=== PATIENT | male | born 1935 | race Hispanic/Latino ===

== ENCOUNTER 2016-11-26 06:06 | Day surgery (SDC) | payer MEDICARE ==
[2016-11-26 06:39] VITALS: BMI 23.0
[2016-11-26] MEDS ORDERED: Lidocaine 1% Inj (20ml) ONE (07:33)
[2016-11-26] MEDS ORDERED: Bupivacaine 0.5% Inj(30mL) ONE (07:33)
[2016-11-26] MEDS ORDERED: Midazolam 2 MG/2 ML VIAL ONE (07:46)
[2016-11-26] MEDS ORDERED: Propofol 10 mg/ml Inj (20 ML) ONE (07:46)
[2016-11-26] MEDS ORDERED: Lactated Ringer's 1,000 ML IV SCH (08:45)
--- NOTE | 2016-11-26 12:46 | OP ---
PROCEDURE DATE: 11/26/2016 PREOPERATIVE DIAGNOSES: Carpal tunnel syndrome, left nondominant hand and trigger finger, fifth digit, left hand. POSTOPERATIVE DIAGNOSES: Carpal tunnel syndrome, left nondominant hand and trigger finger, fifth digit, left hand. PROCEDURE: Open carpal tunnel release with Naranjito tome and open trigger finger release of A1 yulia of the 5th digit left hand. ANESTHESIA: IV sedation and local anesthesia with Xylocaine and Marcaine. DESCRIPTION OF PROCEDURE: The left hand prepped and draped in sterile fashion. Tourniquet inflated to 220 mmHg pressure. Anatomic markings made of the left hand to do a limited carpal tunnel incision by making an incision between the 2 pillars between the hypothenar and thenar eminences and in line with the cardinal's osmany and the radial side of the 4th diget. Deep incision made through the fat pad. After the skin was incised, then we identified the transverse carpal ligament and used the 0.3 blades to help the Betty tome to go under the transverse carpal ligament to protect the median nerve and then a second jig to go more proximal and a third one to go into the flexor beyond the flexor crease of the forearm to a cm. Then the carpal tunnel was released with the Naranjito tome protected vertical blade and we lifted up the tissue and to see that it was fully released. Then, we did the repair of the skin with 2-0 nylon interrupted and then the trigger finger was released with a Chevron incision, apex ulnar side, then that was opened with 1 cm long identifying the A1 yulia, which was released with a 15 blade and to make sure it was fully released and then closed the skin again with 2-0 nylon interrupted. The patient taken to recovery room after the tourniquet was deflated with a nice compression dressing. I will see him in the office in 2 days. Brody Velazquez DO cc: [id number] TT: 11/26/2016 12:45:33 yifan GOSS
[2016-11-27 15:49] VITALS: O2SAT 95
[2016-11-27 15:51] VITALS: RESP 18; TEMP 98
[2016-11-27 15:53] VITALS: BP 128/72; PULSE 54
== END 2016-11-26 11:10 | disposition home or self-care (01) ==
LOC: SDS 06:06
PROVIDERS: ATTEND Orthopaedic Surgery
DX: G56.02 Carpal tunnel syndrome, left upper limb (principal); M65.352 Trigger finger, left little finger
CPT/HCPCS: 26055; 64721; J0690; J2250; J2704; J3010; J7120 ×2

== ENCOUNTER 2017-02-08 15:52 | Emergency (ER) | payer MEDICARE ==
[2017-02-08 15:56] VITALS: BMI 23.1
[2017-02-08 16:06] VITALS: RESP 18; TEMP 97.6
--- NOTE | 2017-02-08 16:08 | ED PDOC ---
Arrival/HPI - General Chief Complaint: Syncope Time Seen by Provider: 02/08/17 15:57 Historian: Patient - History of Present Illness Narrative History of Present Illness (Text): 02/08/17 16:06 81yo male with PMHx of CAD with cardiac stents, hypertension and Diabetes biba for syncopal episode. Patient states he "passed out" while waiting for the food he ordered to be delivered. He notes that he ate breakfast this morning. He states he took his hypoglycemics this morning. He denies any current any current symptom in ED. Denies chest pain, visual changes, focal weakness, nausea , vomiting, recent URI symptoms, fever, chills, abdominal pain, aphasia, headache, sick contact, any other complaint. Past Medical History - Provider Review Nursing Documentation Reviewed: Yes - Infectious Disease Hx of Infectious Diseases: None - Tetanus Immunization Tetanus Immunization: Unknown - Past Medical History Past Medical History: No Previous - Cardiac Hx PR: Yes Hx Hypertension: Yes Hx Pacemaker: No - Pulmonary Hx Respiratory Disorders: No - Neurological Hx Paralysis: No - HEENT Hx HEENT Disorder: No - Renal Hx Renal Disorder: No - Endocrine/Metabolic Hx Endocrine Disorders: Yes Hx Diabetes Mellitus Type 1: Yes - Hematological/Oncological Hx Blood Transfusions: No Hx Blood Transfusion Reaction: No - Integumentary Hx Dermatological Disorder: No - Musculoskeletal/Rheumatological Hx Musculoskeletal Disorders: No - Gastrointestinal Hx Gastrointestinal Disorders: Yes Hx Gastroesophageal Reflux: Yes - Genitourinary/Gynecological Hx Genitourinary Disorders: Yes Hx Prostate Problems: Yes - Psychiatric Hx Emotional Abuse: No Hx Physical Abuse: No Hx Substance Use: No - Past Surgical History Past Surgical History: No Previous - Surgical History Hx Cardiac Catheterization: Yes (with 1 stent) Hx Vascular Surgery: Yes (stents to legs) Other/Comment: "bladder surgery" - Anesthesia Hx Anesthesia Reactions: No Hx Malignant Hyperthermia: No - Suicidal Assessment Feels Threatened In Home Enviroment: No Family/Social History - Physician Review Nursing Documentation Reviewed: Yes Family/Social History: Unknown Family HX Smoking Status: Former Smoker Hx Alcohol Use: No Hx Substance Use: No Hx Substance Use Treatment: No Allergies/Home Meds Allergies/Adverse Reactions: Allergies No Known Allergies Allergy (Verified 02/08/17 15:57) Home Medications: Home Meds Medication Instructions Recorded Confirmed Esomeprazole Magnesium [Nexium] 40 mg PO DAILY 02/15/13 02/08/17 Metformin HCl [Metformin] 850 mg PO BID 02/15/13 02/08/17 Clopidogrel [Plavix] 1 tab PO DAILY 11/27/14 02/08/17 Simvastatin [Simvastatin] 40 mg PO DAILY 11/27/14 02/08/17 diltiaZEM [Cardizem] 30 mg PO DAILY 11/27/14 02/08/17 Enalapril Maleate [Vasotec] 20 mg PO DAILY 09/25/15 02/08/17 Glipizide [Glipizide Xl] 10 mg PO DAILY 09/25/15 02/08/17 Isosorbide Mononitrate [Isosorbide 30 mg PO DAILY 09/25/15 02/08/17 Mononitrate ER] Pentoxifylline [Pentoxil] 400 mg PO DAILY 09/25/15 02/08/17 Aspirin [Ecotrin] 81 mg PO DAILY 11/15/16 02/08/17 Levothyroxine [Synthroid] 25 mcg PO DAILY 11/15/16 02/08/17 Review of Systems - Physician Review All systems were reviewed & negative as marked: Yes - Review of Systems Constitutional: Normal Eyes: Normal ENT: Normal Respiratory: Normal Cardiovascular: Normal Gastrointestinal: Normal Genitourinary Male: Normal Musculoskeletal: Normal Skin: Normal Neurological: Other (Syncopal episode) Endocrine: Normal Hemo/Lymphatic: Normal Psychiatric: Normal Physical Exam Vital Signs Reviewed: Yes Vital Signs Temp Pulse Resp BP Pulse Ox 02/08/17 19:41 70 18 101/71 100 02/08/17 18:00 97.6 F 64 18 127/74 100 02/08/17 15:55 97.6 F 68 18 100/58 L 99 Temperature: Afebrile Blood Pressure: Normal Pulse: Regular Respiratory Rate: Normal Appearance: Positive for: Well-Appearing, Non-Toxic, Comfortable Pain Distress: None Mental Status: Positive for: Alert and Oriented X 3 - Systems Exam Head: Present: Atraumatic, Normocephalic Pupils: Present: PERRL Extroacular Muscles: Present: EOMI Conjunctiva: Present: Normal Mouth: Present: Moist Mucous Membranes Neck: Present: Normal Range of Motion Respiratory/Chest: Present: Clear to Auscultation, Good Air Exchange. No: Respiratory Distress, Accessory Muscle Use Cardiovascular: Present: Regular Rate and Rhythm, Normal S1, S2. No: Murmurs Abdomen: Present: Normal Bowel Sounds. No: Tenderness, Distention, Peritoneal Signs Back: Present: Normal Inspection Upper Extremity: Present: Normal Inspection. No: Cyanosis, Edema Lower Extremity: Present: Normal Inspection. No: Edema Neurological: Present: GCS=15, CN II-XII Intact, Speech Normal, Motor Func Grossly Intact, Normal Sensory Function, Normal Cerebellar Funct, Memory Normal , Other (No focal neurological deficit) Skin: Present: Warm, Dry, Normal Color. No: Rashes Psychiatric: Present: Alert, Oriented x 3, Normal Insight, Normal Concentration Medical Decision Making ED Course and Treatment: 02/09/17 00:02 PT with multiple co morbidities in ED for syncopal episode. [facility] he was given OJ on the field without checking the FS. In ED his FS was greater than 200. He was hemodynamically stable and denied any somatic complaint in ED. His lab was reviewed and mild leukocytosis was noted. first CE was WNL. Head Ct was negative for any acute finding. Blood culture was ordered EKG NSR @69bpm. No ST changes CXR _ NAD Plan was to place pt in OBS for syncope secondary to his age and co morbidities Result and plan was DW the pt. He however declines admission. states he will sign out AMA and follow up with his PMD. He understands the risk of having another syncopal episode, head injury, bleeding and even . He understands all these risk and more and still insists on singing out AMA without getting further evaluation, which includes but not limited to Head MRI and Carotid US. He understood that he can come back to ED at any time, if he change his mind. - Lab Interpretations Lab Results: 02/08/17 16:15 02/08/17 16:15 Lab Results 02/08/17 18:00: Urine Color Yellow, Urine Appearance Clear, Urine pH 6.0, Ur Specific Campbell 1.020, Urine Protein Trace H, Urine Glucose (UA) Negative, Urine Ketones Negative, Urine Blood Negative, Urine Nitrate Negative, Urine Bilirubin Negative, Urine Urobilinogen 0.2, Ur Leukocyte Esterase Negative, Urine RBC Negative, Urine WBC 2 - 5, Ur Epithelial Cells 3 - 4, Urine Bacteria Few 02/08/17 16:15: PT 12.1 H, INR 1.12 H, APTT 23.8 02/08/17 16:15: Sodium 138, Potassium 4.1, Chloride 105, Carbon Dioxide 20 L, Anion Gap 17, BUN 24 H, Creatinine 1.3, Est GFR ( Amer) > 60, Est GFR ( Non-Af Amer) 53, Random Glucose 215 H, Calcium 9.8, Total Bilirubin 0.3, AST 23 , ALT 29, Alkaline Phosphatase 84, Lactate Dehydrogenase 403, Total Creatine Kinase 45, Troponin I < 0.01 D, Total Protein 7.3, Albumin 4.2, Globulin 3.1, Albumin/Globulin Ratio 1.3 02/08/17 16:15: WBC 12.4 H D, RBC 3.73, Hgb 9.3 L, Hct 30.5 L, MCV 81.8, MCH 24.9 L, MCHC 30.5 L, RDW 16.6 H, Plt Count 255, MPV 10.4, Gran % 82.1 H, Lymph % (Auto) 10.3 L, [place] % (Auto) 7.0 H, Eos % (Auto) 0.4 L, Baso % (Auto) 0.2, Gran # 10.16 H, Lymph # 1.3, [place] # 0.9 H, Eos # 0.1, Baso # 0.02 02/08/17 16:09: POC Glucose (mg/dL) 258 H - RAD Interpretation Radiology Orders: 02/08/17 16:03 HEAD W/O CONTRAST [CT] Stat 02/08/17 16:50 CHEST PORTABLE [RAD] Stat Disposition/Present on Arrival - Present on Arrival Any Indicators Present on Arrival: No History of DVT/PE: No History of Uncontrolled Diabetes: No Urinary Catheter: No History of Decub. Ulcer: No History Surgical Site Infection Following: None - Disposition Have Diagnosis and Disposition been Completed?: Yes Diagnosis: Syncope Disposition: AGAINST MEDICAL ADVICE Disposition Time: 19:20 Condition: FAIR Discharge Instructions (ExitCare): Syncope (ED) Referrals: Camilo Oleary DO [Primary Care Provider] - Follow up with primary
[2017-02-08 16:30] LABS: ADD MANUAL DIFF? NO
[2017-02-08 16:40] LABS: BASO # 0.02 K/mm3 (0.0-2.0); BASO % 0.2 % (0.0-3.0); EOS # 0.1 (0.0-0.7); EOS % 0.4 % (1.5-5.0); GRAN # 10.16 (1.4-6.5); GRAN % 82.1 % (50.0-68.0); HEMATOCRIT 30.5 % (42.0-52.0); LYMPH # 1.3 (1.2-3.4); LYMPH % 10.3 % (22.0-35.0); MEAN CELL VOLUME 81.8 fL (80.0-105.0); MEAN CORPUSCULAR HEMOGLOBIN 24.9 pg (25.0-35.0); MEAN CORPUSCULAR HGB CONC 30.5 g/dl (31.0-37.0); MEAN PLATELET VOLUME 10.4 fl (7.0-11.0); MONO # 0.9 (0.1-0.6); PLATELET COUNT 255 10^3/uL (120.0-450.0); RED CELL DISTRIBUTION WIDTH 16.6 % (11.5-14.5); WHITE BLOOD COUNT 12.4 10^3/ul (4.5-11.0)
[2017-02-08 16:47] LABS: INR 1.12 (0.93-1.08); PARTIAL THROMBOPLASTIN TIME 23.8 Seconds (23.7-30.8)
[2017-02-08 16:48] LABS: ALB/GLOB RATIO 1.3 (1.1-1.8); ALKALINE PHOSPHATASE 84 U/L (38-133); ALT/SGPT 29 U/L (7-56); AST/SGOT 23 U/L (15-59); BILIRUBIN,TOTAL 0.3 mg/dL (0.2-1.3); BLOOD UREA NITROGEN 24 mg/dL (7-21); CALCIUM 9.8 mg/dL (8.4-10.5); CARBON DIOXIDE 20 mmol/L (21-33); CHLORIDE 105 mmol/L (95-110); GFR AFRICAN-AMERICAN > 60; GLUCOSE,RANDOM 215 mg/dL (70-110); POTASSIUM 4.1 mmol/L (3.6-5.0); SODIUM 138 mmol/L (132-148); TOTAL PROTEIN 7.3 g/dL (5.8-8.3)
[2017-02-08 17:00] LABS: TROPONIN I < 0.01 ng/mL
--- NOTE | 2017-02-08 17:23 | RAD ---
HISTORY: Cough. Portable study 16:53 COMPARISON: 09/25/2015 FINDINGS: LUNGS: No active pulmonary disease. PLEURA: No significant pleural effusion identified, no pneumothorax apparent. CARDIOVASCULAR: No radiographic findings to suggest acute or significant cardiovascular disease. OSSEOUS STRUCTURES: No significant abnormalities. VISUALIZED UPPER ABDOMEN: Normal. OTHER FINDINGS: None. IMPRESSION: No active disease. No significant interval change compared to the prior examination(s).
[2017-02-08 18:34] VITALS: O2SAT 100
[2017-02-08 19:10] LABS: URINE BILIRUBIN NEGATIVE (NEGATIVE); URINE BLOOD NEGATIVE (NEGATIVE); URINE GLUCOSE (UA) NEGATIVE (NEGATIVE); URINE KETONE NEGATIVE (NEGATIVE); URINE LEUKOCYTE ESTERASE NEGATIVE Leu/uL (NEGATIVE); URINE PROTEIN TRACE mg/dL (<30 mg/dL); URINE UROBILINOGEN 0.2 E.U./dL (<1 E.U./dL)
[2017-02-08 19:13] LABS: URINE APPEARANCE CLEAR (CLEAR); URINE BACTERIA FEW (NEG); URINE COLOR YELLOW (YELLOW); URINE RBC NEGATIVE /hpf (0-2)
[2017-02-08 19:43] VITALS: BP 101/71; PULSE 70
--- NOTE | 2017-02-09 08:50 | CT ---
PROCEDURE: CT HEAD WITHOUT CONTRAST. HISTORY: syncopal episode COMPARISON: None available. TECHNIQUE: Axial computed tomography images were obtained through the head/brain without intravenous contrast. Radiation dose: Total exam DLP = 790.25 mGy-cm. This CT exam was performed using one or more of the following dose reduction techniques: Automated exposure control, adjustment of the mA and/or kV according to patient size, and/or use of iterative reconstruction technique. FINDINGS: HEMORRHAGE: No intracranial hemorrhage. BRAIN: No mass effect or edema. Cortical atrophy, periventricular small vessel disease small lacune or infarcts identified. Encephalomalacia changes in the distribution of the right middle cerebral artery. . VENTRICLES: Unremarkable. No hydrocephalus. CALVARIUM: Unremarkable. PARANASAL SINUSES: Unremarkable as visualized. No significant inflammatory changes. MASTOID AIR CELLS: Unremarkable as visualized. No inflammatory changes. OTHER FINDINGS: None. IMPRESSION: No acute intracranial abnormalities. No significant findings to account for the clinical presentation.
--- NOTE | 2017-02-09 10:05 | CARD ---
APPROVED REPORT EKG Measurement Heart [id number] CO [id number] <Conclusion> Normal sinus rhythm with sinus arrhythmia Cannot rule out Inferior infarct, age undetermined and NSSTW changes are new
== END 2017-02-08 20:20 | disposition left against medical advice (07) ==
LOC: ED 15:52
DX: R55 Syncope and collapse (principal); E11.9 Type 2 diabetes mellitus without complications; I10 Essential (primary) hypertension

== ENCOUNTER 2018-12-28 08:14 | Outpatient (CLI) | payer MEDICARE | END 2018-12-28 08:15 | disposition home or self-care (01) | LOC: LAB 08:14 ==